=== PATIENT | female | born 1995 | race Caucasian/White ===

== ENCOUNTER 2024-07-24 08:24 | Emergency (ER) | payer SELFPAY ==
[2024-07-24 08:30] VITALS: BP 146/82; PULSE 95; TEMP 36.8; O2SAT 99
[2024-07-24 08:34] VITALS: BP 146/82; PULSE 95; TEMP 36.8; O2SAT 99
--- NOTE | 2024-07-24 08:47 | ED.GENADUL_ITS ---
Discharge Plan Disposition Patient Disposition: Home Condition: Stable Discharge Details Clinical Impression: Acute left otitis media, Right middle lobe pneumonia Primary Care Provider: None,None ED Provider: Mercedes Minor Home Meds and New Rx's Prescriptions: New doxycycline hyclate 100 mg capsule 100 mg PO BID 10 Days Qty: 20 0RF Rx Instructions: Please take 1 tablet twice daily for the next 10 days. Discharge Instructions Instructions: Pneumonia, Adult ED, Ear Infection ED Additional Instructions: Please use the albuterol inhaler 1 or 2 puffs every 4-6 hours as needed for shortness of breath and wheezing. The x-ray today shows that you have a right lower pneumonia. I am also suspicious of a left ear infection. Take the antibiotics twice daily with yogurt or a probiotic as directed. Please take Tylenol or Ibuprofen with food every 4-6 hours as needed for pain and swelling. Follow up with primary care provider in 3-5 days. Return to ED sooner if any worsening or concerns. Stand Alone Forms: Work Release Referrals: Primary Care Provider [Outside] - 5 days Discharge Data Discharge Date/Time-TO BE ENTERED AT DEPARTURE: 07/24/24 10:43 HPI General Mode of arrival: ambulatory . Date/Time Provider Initiated Documentation: 07/24/24 08:25 . Limitations to Documentation: no limitations . Information obtained by: patient, RN notes reviewed and old records reviewed . HPI Narrative: 28-year-old female presents to the ER with a chief complaint of bodyaches, co ngestion, cough left ear pain sore throat for approximately 10 days. On exam she does have erythemic left TM with bulging. Posterior oropharynx slightly erythemic no exudate. Some rhonchi noted to the bases bilaterally. No wheezing noted. She is ANO x 4. No significant past medical history or surgeries noted. She is allergic to amoxicillin. Related Data Home Medications ?Medication ?Instructions ?Recorded ?Confirmed doxycycline hyclate 100 mg capsule 100 mg PO BID Pneumonia 10 days 07/24/24 #20 caps Previous Rx's ?Medication ?Instructions ?Recorded doxycycline hyclate 100 mg capsule 100 mg PO BID Pneumonia 10 days 07/24/24 #20 caps Allergies Allergy/AdvReac Type Severity Reaction Status Date / Time amoxicillin Allergy Mild Anaphylaxis Unverified 07/24/24 08:33 General Stated Complaint: GenMedical ELIJAH: 3 Review of Systems All systems reviewed & are unremarkable except as noted in HPI and below Constitutional Constitutional: Reports body ache(s), Reports chills, Reports headache(s) and Reports lethargy ENT Ears, Nose, Mouth, and Throat: Reports otalgia, Reports headache(s) and Reports nasal congestion Respiratory Respiratory: Reports as per HPI, Reports chest congestion and Reports cough Neurologic Neurologic: Reports headache(s) Exam Narrative Exam Narrative: Constitutional: Alert and oriented x3. Appears stated age. Normal body habitus. Head: Normocephalic, no trauma. Eyes: Pupils PERRL, Red reflex noted, EOM's intact. Eyelids symmetrical without lesions, discharge, or swelling. ENT: Left erythemic TM, right TM within normal limits. External ear normal to inspection, no mastoid TTP, swelling, or erythema, Nasal turbinates WNL, no nasal discharge. Normal dentition, Posterior pharynx slightly erythemic, no exudate. Chest: RRR, Normal S1, S2, distal pulses intact. Resp: Bilateral rhonchi in the bases. Abdomen: Soft, non-distended, Normoactive bowel sounds all 4 quads. Musculoskeletal: Normal gait, Moves all 4 extremities without difficulty. Skin: No suspicious rashes or lesions. Capillary refill less than 2 sec. Neurologic: Cranial nerves II-XII intact. Alert and oriented x 3. Motor: No deficits noted. Sensory: Intact bilaterally all 4 extremities. Hematologic/Lymphatic: No ecchymosis, no lymphadenopathy. Course Vital Signs Vital signs: Vital Signs Temperature 36.8 C 07/24/24 08:30 Pulse 95 H 07/24/24 08:30 Blood Pressure 146/82 H 07/24/24 08:30 Pulse Oximetry 99 07/24/24 08:30 Temperature 36.8 C 07/24/24 08:34 Temperature Source Oral 07/24/24 08:34 Pulse 95 H 07/24/24 08:34 Respiratory Effort Normal, Non-Labored 07/24/24 08:34 Blood Pressure 146/82 H 07/24/24 08:34 Blood Pressure Position Sitting 07/24/24 08:34 Pulse Oximetry 99 07/24/24 08:34 Oxygen Delivery Method Room Air 07/24/24 08:34 Oxygen Flow Rate 0 07/24/24 08:34 Medical Decision Making 28-year-old female presents to the ER with a chief complaint of bodyaches, congestion, cough left ear pain sore throat for approximately 10 days. On exam she does have erythemic left TM with bulging. Posterior oropharynx slightly erythemic no exudate. Some rhonchi noted to the bases bilaterally. No wheezing noted. She is ANO x 4. No significant past medical history or surgeries no milton. She is allergic to amoxicillin. Differential diagnosis includes but not limited to URI, viral illness, pneumonia, ear infection. Fluid swab ordered, chest x-ray, will give antibiotics for otitis media will rule out pneumonia. Will consider albuterol inhaler. X-ray shows positive right middle lobe infiltrate, along with left otitis media. Negative COVID flu RSV. Will prescribe doxycycline 100 mg twice daily and albuterol inhaler. Ibuprofen 600 mg p.o. ordered. Given instructions for home care follow-up care strict return instructions verbalized understanding. All of her questions were answered to the best my ability. This text was generated using [employer] dictation system, please disregard any oddities of phrase or misspellings. Lab Data Lab results reviewed: Yes I reviewed the patient's lab results. Labs: Laboratory Tests Range/Units 07/24/24 09:06 COVID-19 Source Nasopharynx SARS-CoV-2 (PCR) (Negative) Negative Influenza Type A (PCR) (Negative) Negative Influenza Type B (PCR) (Negative) Negative RSV (PCR) (Negative) Negative Quality:SDOH Health Related Social Needs: No Data to Display PFSH All Active Problems (Updated 07/24/24 @ 09:46 by Mercedes Minor NP) Right middle lobe pneumonia (Acute) Acute left otitis media (Acute) Social History Smoking/Tobacco Use Status: Current every day Smoking risk assessment performed?: Yes Alcohol Intake: never Drug use: Daily Substance use type: marijuana Do you feel safe at home: Yes Do you feel safe in your relationship?: Yes
[2024-07-24 09:15] VITALS: RESP 18
--- NOTE | 2024-07-24 09:38 | DI.RAD_ITS ---
Exam(s) XR CHEST 2V PA LATERAL EXAM: XR CHEST 2V PA LATERAL CLINICAL HISTORY: Cough, SOB TECHNIQUE: 2D digital imaging was performed. Two views. COMPARISON: No exams were available for comparison FINDINGS: HEART: Normal size. Aorta: Not dilated. PULMONARY VASCULATURE: Normal. MEDIASTINUM: Unremarkable. LUNGS: Right middle lobe infiltrate. Lungs otherwise clear. PLEURAL SPACE: No pleural effusion or pneumothorax. BONE:Unremarkable for age. SOFT TISSUES: Unremarkable. IMPRESSION: Right middle lobe infiltrate. DATA REPOSITORY: RADIATION DOSE DELIVERED:
[2024-07-24 09:58] LABS: COVID-19 PCR Negative (Negative); Influenza A PCR Negative (Negative); Influenza B PCR Negative (Negative); RSV PCR Negative (Negative)
[2024-07-24 10:01] LABS: Source Nasopharynx
[2024-07-24] MEDS: Albuterol HFA 8 GM 60 PUFF INH IH (10:04)
[2024-07-24] MEDS: Ibuprofen 600 MG TAB PO (10:04)
[2024-07-24] MEDS: Doxycycline Hyclate 100 MG CAP PO (10:04)
[2024-07-24] MEDS: Inhaler, Assist Device 1 EACH MC (10:05)
[2024-07-24 10:33] VITALS: BP 121/70; PULSE 90; RESP 16; O2SAT 99
== END 2024-07-24 10:43 | disposition home or self-care (01) ==
PROVIDERS: Emergency Provider Registered Nurse Emergency
DX: J18.9 Pneumonia, unspecified organism (principal); H66.92 Otitis media, unspecified, left ear; R52 Pain, unspecified; H92.02 Otalgia, left ear
CPT/HCPCS: 81025; 87637; 99283; 71046